=== PATIENT | male | born 1960 | race Caucasian/White ===

== ENCOUNTER → 2017-11-02 | Outpatient (REF) | payer BC, OTHER ==
--- NOTE | 2017-11-02 13:36 | Diagnostic Imaging Report ---
INDICATION: Smashed third and fourth fingers of the right hand. TIME OF EXAM: 01:14 p.m. Three views of the right hand were obtained. Metacarpals are intact. Phalanges are intact. Alignment is normal. No fractures are seen. Carpus does show some degenerative changes at the triscaphe and first CMC joints. No carpal fracture is seen. The distal radius and ulnar are intact. IMPRESSION: Chronic changes. No acute bony abnormality is detected. Dictated by: Dictated on workstation # [id number]
== END ==
LOC: RAD 12:48
PROVIDERS: ATTEND Nurse Practitioner Family
DX: S69.81XA Other specified injuries of right wrist, hand and finger(s), initial encounter (principal)
CPT/HCPCS: 73130

== ENCOUNTER → 2020-06-04 | Outpatient (CLI) | payer OTHER ==
--- NOTE | 2020-06-04 14:07 | Diagnostic Imaging Report ---
INDICATION: Left thumb pain. FINDINGS: Three views of the left hand show a small metallic foreign object measuring 1 x 4 mm in the soft tissues lateral to the 1st MTP joint. This does not appear to be intraosseous or intra-articular. There is no fracture or dislocation seen in the hand. IMPRESSION: Metallic foreign body in the subcutaneous soft tissues near the base of the thumb. Dictated by: Dictated on workstation # [id number]
== END ==
LOC: RAD 10:26
PROVIDERS: ATTEND Family Medicine
DX: M79.5 Residual foreign body in soft tissue (principal); M79.642 Pain in left hand
CPT/HCPCS: 73130

== ENCOUNTER 2021-02-22 12:16 | Emergency (ER) | payer BC ==
[~2021-02-22] VITALS: Ht 172.7 cm; Wt 63.5 kg
[2021-02-22] MEDS ORDERED: HEParin DRIP 25000 UNIT/500ML 500 ML IV SCH (12:45)
[2021-02-22] MEDS ORDERED: HEParin 1000 UNIT/ML (10ML VIAL) FOR BOLUS IV SCH (12:45)
[2021-02-22] MEDS ORDERED: fentaNYL INJ 100 MCG/2 ML AMP IVP ONE (12:45)
--- NOTE | 2021-02-22 12:49 | ED Lower Extremity ---
General Chief Complaint: Lower Extremity Stated Complaint: ACUTE OCCLUSION OF L POP ARTERY Nursing Triage Note: PT TO RM 3 VIA WC AFTER ULTRASOUND SHOWED ACUTE POPLITEAL ARTERY OCCLUSION. PT REPORTS PAIN SX YESTERDAY MORNING WHEN HE WOKE UP. A&OX4. Source: patient Exam Limitations: no limitations History of Present Illness Date Seen by Provider: Feb 22, 2021 Time Seen by Provider: 12:44 Initial Comments To ER from the outpatient ultrasound department with reports of an occlusion of the left popliteal artery. This was ordered by primary care provider Dr. Davidson with reports of persistent left calf pain since yesterday. He does report that he has had some cramping pain that lasts 1 to 2 minutes brought about with activity and goes away with rest to the left calf for the past 3 to 4 months. He does smoke cigarettes. No history of arterial occlusion. He currently rates his pain at 7 out of 10 and describes his lower extremity as tingling and "going to sleep". Onset: just prior to arrival Severity: moderate Pain/Injury Location: left leg Method of Injury: unknown Modifying Factors: Worse With Movement Allergies and Home Medications Allergies Coded Allergies: No Known Drug Allergies (Unverified , 02/22/21) Patient Home Medication List Home Medication List Reviewed: Yes Review of Systems Constitutional: see HPI EENTM: see HPI Respiratory: no symptoms reported Cardiovascular: no symptoms reported Genitourinary: no symptoms reported Musculoskeletal: no symptoms reported Skin: no symptoms reported Psychiatric/Neurological: No Symptoms Reported Past Myvvlgy-[place] Hx Patient Social History Tobacco Use?: Yes Tobacco type used: Cigarettes Smoking Status: Current Everyday Smoker Use of E-Cig and/or Vaping dev: No Substance use?: Yes Substance type: Marijuana Alcohol Use?: Yes Immunizations Up To Date Influenza Vaccine Up-to-Date: No; Not Current First/Initial COVID19 Vaccinat: 2020 Second COVID19 Vaccination Konstantin: 2020 COVID19 Vaccine Lay Out Worker: PAYAM Past Medical History Surgery/Hospitalization HX: PMH: HEAD INJ RESULTING IN BLOOD CLOT Physical Exam Vital Signs Vital Signs - First Documented 02/22/21 12:20 Temp 36.5 Pulse 87 Resp 20 B/P (MAP) 166/98 (120) Pulse Ox 98 O2 Delivery Room Air Capillary Refill : Less Than 3 Seconds Height, Weight, BMI Height: '" Weight: lbs. oz. kg; 21.00 BMI Method: General Appearance: WD/WN, no apparent distress Neck: non-tender, full range of motion Respiratory: no respiratory distress, no accessory muscle use Hips: bilateral hip non-tender, bilateral hip normal inspection, bilateral hip normal range of motion Legs: left leg pain (Left calf) Knees: bilateral knee non-tender, bilateral knee normal inspection, bilateral knee normal range of motion Ankles: right ankle non-tender, right ankle normal inspection, right ankle nor mal range of motion; left ankle pain Feet: bilateral foot other (The right foot is cool but with brisk capillary refill of the tip of the toes, a 1+ palpable dorsalis pedis pulse. The left leg has absent capillary refill at the pads of the tip of the toes as well as the heel. There is no palpable pulse in the dorsalis pedis artery or in the posterior tibial artery. The left lower leg from the mid calf distally is much more pale in comparison to the right.) Neurologic/Tendon: other (He has motor function dorsiflexion and plantar flexion of the foot and toes but describes a tingling sensation) Neurologic/Psychiatric: alert, normal mood/affect, oriented x 3 Skin: normal color, warm/dry Progress/Results/Core Measures Results/Orders Lab Results Laboratory Tests Test 02/22/21 12:25 Range/Units White Blood Count 13.1 H 4.3-11.0 10^3/uL Red Blood Count 5.22 4.30-5.52 10^6/uL Hemoglobin 17.2 13.3-17.7 g/dL Hematocrit 51 40-54 % Mean Corpuscular Volume 97 80-99 fL Mean Corpuscular Hemoglobin 33 25-34 pg Mean Corpuscular Hemoglobin Concent 34 32-36 g/dL Red Cell Distribution Width 13.9 10.0-14.5 % Platelet Count 354 130-400 10^3/uL Mean Platelet Volume 9.1 9.0-12.2 fL Immature Granulocyte % (Auto) 1 % Neutrophils (%) (Auto) 67 42-75 % Lymphocytes (%) (Auto) 22 12-44 % Monocytes (%) (Auto) 9 0-12 % Eosinophils (%) (Auto) 2 0-10 % Basophils (%) (Auto) 1 0-10 % Neutrophils # (Auto) 8.8 H 1.8-7.8 10^3/uL Lymphocytes # (Auto) 2.8 1.0-4.0 10^3/uL Monocytes # (Auto) 1.1 H 0.0-1.0 10^3/uL Eosinophils # (Auto) 0.2 0.0-0.3 10^3/uL Basophils # (Auto) 0.1 0.0-0.1 10^3/uL Immature Granulocyte # (Auto) 0.1 0.0-0.1 10^3/uL Prothrombin Time 12.2 12.2-14.7 SEC INR Comment 0.9 0.8-1.4 Activated Partial Thromboplast Time 26 24-35 SEC Sodium Level 137 135-145 MMOL/L Potassium Level 3.9 3.6-5.0 MMOL/L Chloride Level 99 98-107 MMOL/L Carbon Dioxide Level 23 21-32 MMOL/L Anion Gap 15 H 5-14 MMOL/L Blood Urea Nitrogen 8 7-18 MG/DL Creatinine 0.90 0.60-1.30 MG/DL Estimat Glomerular Filtration Rate 86 BUN/Creatinine Ratio 9 Glucose Level 94 70-105 MG/DL Calcium Level 9.4 8.5-10.1 MG/DL Corrected Calcium 8.5-10.1 MG/DL Total Bilirubin 0.5 0.1-1.0 MG/DL Aspartate Amino Transf (AST/SGOT) 24 5-34 U/L Alanine Aminotransferase (ALT/SGPT) 19 0-55 U/L Alkaline Phosphatase 89 40-136 U/L Total Protein 7.8 6.4-8.2 GM/DL Albumin 4.6 H 3.2-4.5 GM/DL My Orders Orders - ABIDA DIALLO APRN Partial Thromboplastin Time (02/22/21 12:41) Protime With Inr (02/22/21 12:41) Cbc With Automated Diff (02/22/21 12:41) Comprehensive Metabolic Panel (02/22/21 12:41) Ed Iv/Invasive Line Start (02/22/21 12:41) Fentanyl Inj (Sublimaze Injection) (02/22/21 12:45) Heparin Drip 23565 Unit/500ml (Heparin (02/22/21 12:45) Heparin (Bolus Per Protocol) (Heparin (B (02/22/21 12:45) Initiate Heparin Full Protocol (02/22/21 12:41) Medications Given in ED Current Medications Medications Dose Ordered Sig/Nory Route Start Time Stop Time Status Last Admin Dose Admin Fentanyl Citrate 50 mcg ONCE ONCE IVP 02/22/21 12:45 02/22/21 12:46 DC 02/22/21 12:53 50 MCG Vital Signs/I&O 02/22/21 02/22/21 12:20 12:53 Temp 36.5 36.5 Pulse 87 Resp 20 B/P (MAP) 166/98 (120) Pulse Ox 98 O2 Delivery Room Air Blood Pressure Mean: 120 Departure Communication (Admissions) Family Conversation [id number] discussed with Dr. Villavicencio from [facility]. He would like a heparin drip at 1000 units/h, patient did receive a 5000 unit bolus here as well. I will wen sfer to the emergency room at [facility] to Dr. Porras and Dr. Villavicencio [facility] [place], [place] NAME: RAFAELA BURGOS [facility] REC#: [id number] PT STATUS: REG CLI : 1960 PHYSICIAN: REESE MOLINA APRN ADMIT DATE: 02/22/21/RAD Draft Date of Exam:02/22/21 US VENOUS LOWER EXT LT PROCEDURE: US left lower extremity venous. TECHNIQUE: Multiple real-time grayscale images were obtained over the left lower extremity in various projections. Additional duplex Doppler and color Doppler images were also obtained. INDICATION: Left lower extremity cramping and pain. FINDINGS: There is no evidence of left lower extremity DVT. Left lower extremity deep venous system shows normal compressibility with normal response to augmentation Valsalva. There does appear to be acute appearing hypoechoic thrombus within the popliteal artery. No identifiable flow in the anterior tibial, posterior tibial or dorsalis pedis arteries is identified. No fluid collections are seen. IMPRESSION: 1. No evidence of left lower extremity DVT. 2. Findings consistent with acute occlusion of the popliteal artery as well as the anterior, posterior and dorsalis pedis arteries. The patient's primary caregiver was notified of these results and patient was sent to the emergency Department. Dictated on workstation # [id number] Dict: 02/22/21 1243 Trans: 02/22/21 1250 [id number] Interpreted by: DARON LYNCH MD Electronically signed by: Impression Primary Impression: Left popliteal artery occlusion Disposition: XFER SHT-TRM HOSP Condition: Stable Transfer Transfer Reason: Exceeds level of care Departure-Patient Inst. Referrals: CHUCHO DAVIDSON DO (PCP/Family) Primary Care Physician ABIDA DIALLO REGISTERED NURSE Feb 22, 2021 12:49
[2021-02-22 12:54] LABS: ALBUMIN 4.6 GM/DL (3.2-4.5); CHLORIDE 99 MMOL/L (98-107); POTASSIUM 3.9 MMOL/L (3.6-5.0); SODIUM 137 MMOL/L (135-145)
[2021-02-22 12:55] LABS: CALCIUM 9.4 MG/DL (8.5-10.1)
[2021-02-22 12:56] LABS: BASOPHILS # (AUTO) 0.1 10^3/uL (0.0-0.1); BASOPHILS % (AUTO) 1 % (0-10); EOSINOPHILS # (AUTO) 0.2 10^3/uL (0.0-0.3); EOSINOPHILS % (AUTO) 2 % (0-10); HEMATOCRIT 51 % (40-54); HEMOGLOBIN 17.2 g/dL (13.3-17.7); LYMPHOCYTES # (AUTO) 2.8 10^3/uL (1.0-4.0); LYMPHOCYTES % (AUTO) 22 % (12-44); MEAN CORPUSCULAR HEMOGLOBIN 33 pg (25-34); MEAN CORPUSCULAR HGB CONC 34 g/dL (32-36); MEAN CORPUSCULAR VOLUME 97 fL (80-99); MEAN PLATELET VOLUME 9.1 fL (9.0-12.2); MONOCYTES # (AUTO) 1.1 10^3/uL (0.0-1.0); MONOCYTES % (AUTO) 9 % (0-12); NEUTROPHILS # (AUTO) 8.8 10^3/uL (1.8-7.8); NEUTROPHILS % (AUTO) 67 % (42-75); PLATELET COUNT 354 10^3/uL (130-400); WHITE BLOOD COUNT 13.1 10^3/uL (4.3-11.0)
[2021-02-22 12:57] LABS: GLUCOSE 94 MG/DL (70-105); TOTAL PROTEIN 7.8 GM/DL (6.4-8.2)
[2021-02-22 12:58] LABS: BILIRUBIN,TOTAL 0.5 MG/DL (0.1-1.0); CARBON DIOXIDE 23 MMOL/L (21-32)
[2021-02-22 13:00] LABS: ALKALINE PHOSPHATASE 89 U/L (40-136); GFR ESTIMATED 86
[2021-02-22 13:01] LABS: BUN/CREATININE RATIO 9; INR 0.9 (0.8-1.4); PROTHROMBIN TIME PATIENT 12.2 SEC (12.2-14.7)
[2021-02-22 13:03] LABS: ALANINE AMINOTRANSFERASE 19 U/L (0-55)
[2021-02-22 13:50] VITALS: BP 162/104
== END 2021-02-22 14:24 | disposition short-term general hospital (02) ==
LOC: EDUNIT# 12:16 → ER 12:18
DX: I74.3 Embolism and thrombosis of arteries of the lower extremities (principal); F17.210 Nicotine dependence, cigarettes, uncomplicated
CPT/HCPCS: 36415; 80053; 85025; 85610; 85730

== ENCOUNTER → 2021-02-22 | Outpatient (CLI) | payer BC, OTHER ==
--- NOTE | 2021-02-22 12:50 | Diagnostic Imaging Report ---
PROCEDURE: US left lower extremity venous. TECHNIQUE: Multiple real-time grayscale images were obtained over the left lower extremity in various projections. Additional duplex Doppler and color Doppler images were also obtained. INDICATION: Left lower extremity cramping and pain. FINDINGS: There is no evidence of left lower extremity DVT. Left lower extremity deep venous system shows normal compressibility with normal response to augmentation Valsalva. There does appear to be acute appearing hypoechoic thrombus within the popliteal artery. No identifiable flow in the anterior tibial, posterior tibial or dorsalis pedis arteries is identified. No fluid collections are seen. IMPRESSION: 1. No evidence of left lower extremity DVT. 2. Findings consistent with acute occlusion of the popliteal artery as well as the anterior, posterior and dorsalis pedis arteries. The patient's primary caregiver was notified of these results and patient was sent to the emergency Department. Dictated by: Dictated on workstation # [id number]
== END ==
LOC: RAD 11:28
PROVIDERS: ATTEND Nurse Practitioner Family
DX: I73.89 Other specified peripheral vascular diseases (principal); M19.042 Primary osteoarthritis, left hand; R25.2 Cramp and spasm; Z72.0 Tobacco use

== ENCOUNTER → 2021-03-11 | Outpatient (CLI) | payer BC | LOC: WOUNDCARE 09:07 | PROVIDERS: ATTEND Family Medicine | DX: I70.242 Atherosclerosis of native arteries of left leg with ulceration of calf (principal); T65.222A Toxic effect of tobacco cigarettes, intentional self-harm, initial encounter; T81.31XA Disruption of external operation (surgical) wound, not elsewhere classified, initial encounter; F10.10 Alcohol abuse, uncomplicated | CPT/HCPCS: 99214 ==

== ENCOUNTER → 2021-03-14 | Outpatient (CLI) | payer BC ==
--- NOTE | 2021-03-14 17:41 | Diagnostic Imaging Report ---
INDICATION: Atherosclerosis of the [place] arteries. COMPARISON: No relevant comparison is available. FINDINGS: There are triphasic waveforms demonstrated within the left common femoral artery. There are biphasic waveforms within the proximal aspect of the profunda. There appears to be a short segment stent within the proximal aspect of the left superficial femoral artery which is patent. There are triphasic waveforms demonstrated within the superficial femoral artery. There are biphasic waveforms demonstrated within the popliteal. There are biphasic waveforms evident within the left posterior tibial artery. There are biphasic waveforms within the anterior tibial artery and within the dorsalis pedis. Note is made of a questionable additional stent within the distal superficial femoral artery. Correlation with prior surgical history appreciated. There are no high-grade velocity changes evident to suggest a hemodynamically significant stenosis. IMPRESSION: Apparent intravascular stent within the proximal superficial femoral artery with a questionable distal superficial femoral artery stent. There are triphasic waveforms proximally within the thigh and biphasic waveforms within the popliteal and calf. There are no velocity changes present to suggest a high-grade left-sided arterial stenosis. Dictated by: Dictated on workstation # [id number]
== END ==
LOC: RAD 13:30
PROVIDERS: ATTEND Family Medicine
DX: I70.242 Atherosclerosis of native arteries of left leg with ulceration of calf (principal)
CPT/HCPCS: 93926

== ENCOUNTER → 2021-03-20 | Outpatient (CLI) | payer BC | LOC: WOUNDCARE 08:02 | PROVIDERS: ATTEND Family Medicine | DX: I70.242 Atherosclerosis of native arteries of left leg with ulceration of calf (principal); I96 Gangrene, not elsewhere classified; T81.31XA Disruption of external operation (surgical) wound, not elsewhere classified, initial encounter; T65.222A Toxic effect of tobacco cigarettes, intentional self-harm, initial encounter; F10.10 Alcohol abuse, uncomplicated | CPT/HCPCS: 11042; G0463 ==

== ENCOUNTER → 2021-03-27 | Outpatient (CLI) | payer BC | LOC: WOUNDCARE 08:09 | PROVIDERS: ATTEND Family Medicine | DX: I70.242 Atherosclerosis of native arteries of left leg with ulceration of calf (principal); I96 Gangrene, not elsewhere classified; T81.31XA Disruption of external operation (surgical) wound, not elsewhere classified, initial encounter; T65.222A Toxic effect of tobacco cigarettes, intentional self-harm, initial encounter; F10.10 Alcohol abuse, uncomplicated | CPT/HCPCS: 11042; G0463 ==

== ENCOUNTER → 2021-04-03 | Outpatient (CLI) | payer BC | LOC: WOUNDCARE 08:14 | PROVIDERS: ATTEND Family Medicine | DX: I70.242 Atherosclerosis of native arteries of left leg with ulceration of calf (principal); T65.222A Toxic effect of tobacco cigarettes, intentional self-harm, initial encounter; T81.31XA Disruption of external operation (surgical) wound, not elsewhere classified, initial encounter; G90.09 Other idiopathic peripheral autonomic neuropathy; F10.10 Alcohol abuse, uncomplicated | CPT/HCPCS: 11042; G0463 ==

== ENCOUNTER → 2021-04-03 | Outpatient (CLI) | payer BC | LOC: LAB 11:24 | PROVIDERS: ATTEND Family Medicine | DX: E53.8 Deficiency of other specified B group vitamins (principal) | CPT/HCPCS: 36415; 82607 ==

== ENCOUNTER → 2021-04-10 | Outpatient (CLI) | payer BC | LOC: WOUNDCARE 08:16 | PROVIDERS: ATTEND Family Medicine | DX: I70.242 Atherosclerosis of native arteries of left leg with ulceration of calf (principal); T65.222A Toxic effect of tobacco cigarettes, intentional self-harm, initial encounter; T81.31XA Disruption of external operation (surgical) wound, not elsewhere classified, initial encounter; G90.09 Other idiopathic peripheral autonomic neuropathy; F10.10 Alcohol abuse, uncomplicated | CPT/HCPCS: 17250; G0463 ==